=== PATIENT | male | born 1955 | race Caucasian/White ===

== ENCOUNTER 2020-01-07 06:39 | Day surgery (SDC) | payer OTHER ==
[2020-01-05 10:35] VITALS: BMI 29.0
[~2020-01-07 06:39] MED LIST: LACTATED RINGERS 1,000 ML IV SCH
[2020-01-07 07:12] VITALS: RESP 16; TEMP 97.6
[2020-01-07 07:25] LABS: Glucose,Whole Blood 191 mg/dL (75-99)
[2020-01-07] MEDS ORDERED: PROPOFOL 10 MG/ML 20 ML VIAL IV ONE (07:32)
--- NOTE | 2020-01-07 07:52 | P.PCN ---
Date of Procedure: 01/07/20 Procedure(s) Performed: BRIEF HISTORY: Patient is a 64-year-old pleasant male scheduled for an elective colonoscopy as a part of screening for colorectal neoplasia. PROCEDURE PERFORMED: Colonoscopy with biopsy. PREOPERATIVE DIAGNOSIS: Screening for colon cancer. IV sedation per Anesthesia. PROCEDURE: After informed consent was obtained, the patient, was brought into the endoscopy unit. IV sedation was administered by Anesthesia under continuous monitoring. Digital rectal examination was normal. Initially the Olympus CF-160 flexible video colonoscope was then inserted in the rectum, gradually advanced into the cecum without any difficulty. Careful examination was performed as the scope was gradually being withdrawn. Ileocecal valve and the appendiceal orifice were visualized and appeared normal. Prep was excellent. Mucosa of the cecum, ascending colon, transverse colon, descending colon, sigmoid colon, and rectum appeared normal. There was a 5 mm polyp noted in the mid rectum that was removed by cold biopsy. Retroflexion was performed in the rectum and no lesions were seen. The patient tolerated the procedure well. IMPRESSION: 5 mm mid rectal polyp status post removal by cold biopsy Rest of the colon appeared normal RECOMMENDATIONS: Findings of this examination were discussed with the patient as well as his family. He was advised to follow with the biopsy results. If the biopsy shows an adenoma he can have a repeat colonoscopy in 5 years.
[2020-01-07 08:11] VITALS: BP 120/76; PULSE 68
== END 2020-01-07 08:47 | disposition home or self-care (01) ==
LOC: ORWHC2ENDO 06:39
PROVIDERS: ATTEND Internal Medicine Gastroenterology
DX: Z12.11 Encounter for screening for malignant neoplasm of colon (principal); D12.8 Benign neoplasm of rectum; I10 Essential (primary) hypertension; E78.5 Hyperlipidemia, unspecified; E11.9 Type 2 diabetes mellitus without complications; G47.33 Obstructive sleep apnea (adult) (pediatric); Z79.84 Long term (current) use of oral hypoglycemic drugs; Z91.040 Latex allergy status; Z91.048 Other nonmedicinal substance allergy status; Z79.899 Other long term (current) drug therapy
CPT/HCPCS: 88305; 45380; J2704

== ENCOUNTER 2020-01-27 18:35 | Emergency (ER) | payer OTHER ==
[2020-01-27 18:52] VITALS: BP 131/80; PULSE 73; RESP 20; TEMP 98.9
[2020-01-27] MEDS ORDERED: KETOROLAC 15 MG/ML 1 ML VIAL IM STA (19:13)
--- NOTE | 2020-01-27 19:13 | ED ---
Lower Extremity Injury HPI - General Chief Complaint: Extremity Injury, Lower Stated Complaint: Right foot Pain Time Seen by Provider: 01/27/20 19:01 Source: patient, RN notes reviewed, old records reviewed Mode of arrival: ambulatory Limitations: no limitations - History of Present Illness Initial Comments: This is a 64-year-old male DF with history of the left left great toe pain. He states he has severe pain in his great toe concerned that he has diabetes and he could have an infection there. Otherwise no fevers no streaking up his foot. No other complaints MD Complaint: foot injury (no injury just pain and swelling) Injury: Foot: Left (great toe) Place: home Severity: moderate Severity scale (1-10): 6 Improves With: nothing Worsens With: weight bearing Associated Symptoms: swelling, able to partially bear weight - Related Data Home Medications Medication Instructions Recorded Confirmed Atorvastatin [Lipitor] 10 mg PO DAILY 01/05/20 01/05/20 Fenofibrate 160 mg PO DAILY 01/05/20 01/05/20 Metoprolol Succinate [Toprol XL] 100 mg PO DAILY 01/05/20 01/05/20 Multivitamin [Multivitamins Adult 1 each PO DAILY 01/05/20 01/05/20 Gummies] hydroCHLOROthiazide [Hydrodiuril] 12.5 mg PO DAILY 01/05/20 01/05/20 metFORMIN HCL [Glucophage] 500 mg PO BID 01/05/20 01/05/20 sitaGLIPtin [Januvia] 100 mg PO DAILY 01/05/20 01/05/20 Previous Rx's Medication Instructions Recorded Indomethacin [Indocin] 50 mg PO BID #30 capsule 01/27/20 Allergies Allergy/AdvReac Type Severity Reaction Status Date / Time adhesive tape Allergy blisters Verified 01/27/20 18:52 skin latex Allergy slisters Verified 01/27/20 18:52 skin Review of Systems ROS Statement: Those systems with pertinent positive or pertinent negative responses have been documented in the HPI. ROS Other: All systems not noted in ROS Statement are negative. Past Medical History Past Medical History: Diabetes Mellitus, Hyperlipidemia, Hypertension, Sleep Apnea/CPAP/BIPAP Additional Past Medical History / Comment(s): sleep apnea-improved with wt loss History of Any Multi-Drug Resistant Organisms: None Reported Additional Past Surgical History / Comment(s): colonoscopy Past Anesthesia/Blood Transfusion Reactions: No Reported Reaction Additional Past Anesthesia/Blood Transfusion Reaction / Comment(s): no hx general anesthesia or blood transfusion Past Psychological History: No Psychological Hx Reported Smoking Status: Never smoker Past Alcohol Use History: None Reported Past Drug Use History: None Reported - Past Family History Mother Family Medical History: No Reported History Father Family Medical History: Cancer General Exam - General Exam Comments Initial Comments: Left great toe gouty changes, joint tenderness and redness Limitations: no limitations General appearance: alert, in no apparent distress Head exam: Present: atraumatic, normocephalic, normal inspection Eye exam: Present: normal appearance, PERRL, EOMI. Absent: scleral icterus, conjunctival injection, periorbital swelling ENT exam: Present: normal exam, mucous membranes moist Neck exam: Present: normal inspection. Absent: tenderness, meningismus, lymphadenopathy Respiratory exam: Present: normal lung sounds bilaterally. Absent: respiratory distress, wheezes, rales, rhonchi, stridor Cardiovascular Exam: Present: regular rate, normal rhythm, normal heart sounds. Absent: systolic murmur, diastolic murmur, rubs, gallop, clicks GI/Abdominal exam: Present: soft, normal bowel sounds. Absent: distended, tenderness, guarding, rebound, rigid Extremities exam: Present: normal inspection, full ROM, normal capillary refill. Absent: tenderness, pedal edema, joint swelling, calf tenderness Back exam: Present: normal inspection Neurological exam: Present: alert, oriented X3, CN II-XII intact Psychiatric exam: Present: normal affect, normal mood Skin exam: Present: warm, dry, intact, normal color. Absent: rash Course Vital Signs 01/27/20 18:48 Temperature 98.9 F Pulse Rate 73 Respiratory 20 Rate Blood Pressure 131/80 O2 Sat by Pulse 96 Oximetry - Reevaluation(s) Reevaluation #1: Medical record is reviewed Patient symptoms improved feels well Patient informed of results, questions answered Patient feels good for discharge Medical Decision Making - Medical Decision Making 64 male informed of gouty tophus, patient treated appropriately for gouty tophus will be discharged home - Radiology Data Radiology results: report reviewed (X-ray foot negative for acute disease), image reviewed Disposition Clinical Impression: Gouty tophi of joint, Gouty arthritis of great toe Disposition: HOME SELF-CARE Condition: Good Instructions (If sedation given, give patient instructions): Gout (ED) Prescriptions: Indomethacin [Indocin] 50 mg PO BID #30 capsule Is patient prescribed a controlled substance at d/c from ED?: No Referrals: More Michaels MD [Primary Care Provider] - 1-2 days
--- NOTE | 2020-01-27 19:40 | XR ---
EXAMINATION TYPE: XR foot complete RT DATE OF EXAM: 01/27/2020 COMPARISON: NONE HISTORY: Pain TECHNIQUE: 3 views FINDINGS: There is an Achilles calcaneal spur. Metatarsals are intact. The toes appear intact. I see no fracture nor dislocation. IMPRESSION: No acute bony abnormality. Calcaneal spurring. No fracture.
== END 2020-01-27 20:11 | disposition home or self-care (01) ==
LOC: EC 18:35
DX: M1A.0721 Idiopathic chronic gout, left ankle and foot, with tophus (tophi) (principal); E11.9 Type 2 diabetes mellitus without complications; E78.5 Hyperlipidemia, unspecified; I10 Essential (primary) hypertension; G47.33 Obstructive sleep apnea (adult) (pediatric); Z79.84 Long term (current) use of oral hypoglycemic drugs; Z79.899 Other long term (current) drug therapy; Z99.89 Dependence on other enabling machines and devices; Z91.040 Latex allergy status; Z91.048 Other nonmedicinal substance allergy status
CPT/HCPCS: 73630; 96372; 99284; J1885

== ENCOUNTER → 2020-09-13 | Outpatient (CLI) | payer OTHER ==
--- NOTE | 2020-09-13 09:44 | XR ---
EXAMINATION TYPE: XR chest 2V DATE OF EXAM: 09/13/2020 COMPARISON: None HISTORY: 64-year-old male D75.1 Z71.3 E78.5 I10 TECHNIQUE: Frontal and lateral views FINDINGS: The cardiomediastinal silhouette, aorta, and pulmonary vasculature are within normal limits. There is some focal patchy medial right basilar opacity. Hazy density at the apex of the heart suggestive of epicardial fat pad. No definite consolidation or pleural effusion seen. IMPRESSION: Some focal patchy atelectasis versus early infiltrate at the medial right base. Correlate with patien t's symptoms.
== END | disposition home or self-care (01) ==
LOC: RADXRMAIN 08:56
PROVIDERS: ATTEND Internal Medicine Hematology & Oncology
DX: D75.1 Secondary polycythemia (principal)
CPT/HCPCS: 71046

== ENCOUNTER → 2020-10-05 | Outpatient (CLI) | payer OTHER ==
--- NOTE | 2020-10-05 12:28 | CT ---
EXAMINATION TYPE: CT chest w con DATE OF EXAM: 10/05/2020 COMPARISON: None HISTORY: lung infiltrate CT DLP: 691 mGycm, Automated exposure control for dose reduction was used. CONTRAST: Performed injected with 100 mL of Isovue 300. TECHNIQUE: Axial images were obtained at 5 mm thick sections. Reconstructed images are reviewed on [employer] computer in the coronal plane. FINDINGS: Portion of the thyroid visualized is normal. No suspicious lung nodules or focal infiltrates are present. No enlarged mediastinal or hilar adenopathy is evident. The ascending aorta diameter at the level o f the main pulmonary artery is 3.6 cm. The main pulmonary artery diameter at the bifurcation is 2.[address] sections are obtained through the upper abdomen. Abdomen is essentially unremarkable. IMPRESSIONS: 1. No acute pulmonary process.
== END | disposition home or self-care (01) ==
LOC: RADCTMAIN 09:14
PROVIDERS: ATTEND Internal Medicine Hematology & Oncology
DX: R91.8 Other nonspecific abnormal finding of lung field (principal)
CPT/HCPCS: 71260; Q9967

== ENCOUNTER → 2022-06-26 | Outpatient (CLI) | payer MEDICARE ==
--- NOTE | 2022-06-27 08:06 | XR ---
EXAMINATION TYPE: XR lumbosacral spine min 4V DATE OF EXAM: 06/26/2022 4:31 PM INDICATION: Patient age:Male; 66 years old; Reason for study: M25.552 M54.50; [facility]. COMPARISON: None TECHNIQUE: Frontal, lateral , bilateral oblique and coned in L5-S1 lateral views of the spine. FINDINGS: No evidence of any acute osseous pathology. No evidence of loss of vertebral body height i s seen. There is grade 1 anterolisthesis of L5 on S1. Alignment of the lumbar vertebral bodies. Mild scattered disc space narrowing. Multilevel marginal osteophyte formation throughout the visualized sp ine. There is facet joint arthropathy throughout the spine. Scattered at least mild neural foraminal stenosis most pronounced at L4-L5 and L5-S1. IMPRESSION: 1. No acute fracture. 2. Mild multilevel disc degeneration. 2. Grade 1 anterolisthesis of L5 on S1
--- NOTE | 2022-06-27 08:08 | XR ---
EXAMINATION TYPE: XR Hip Complete LT DATE OF EXAM: 06/26/2022 4:31 PM INDICATION: Patient age:Male; 66 years old; Reason for study: M25.552 M54.50; COMPARISON: None. TECHNIQUE: The left hip was examined in the frontal and lateral projections and a AP pelvis. FINDINGS: No evidence for acute process, joint dislocation or significant soft tissue swelling. Mild osteophyte formation of the superior acetabulum of the hip. IMPRESSION: 1. No evidence for acute process. 2. Mild hip osteoarthrosis.
== END | disposition home or self-care (01) ==
LOC: RADXRMAIN 16:11
PROVIDERS: ATTEND Nurse Practitioner Family
DX: M43.17 Spondylolisthesis, lumbosacral region (principal); M51.36 Other intervertebral disc degeneration, lumbar region; M16.12 Unilateral primary osteoarthritis, left hip
CPT/HCPCS: 72110; 73502

== ENCOUNTER 2023-01-08 18:31 | Emergency (ER) | payer MEDICARE ==
[2023-01-08 18:56] VITALS: TEMP 98.6
[2023-01-08] MEDS ORDERED: DIPH,PERTUS(ACELL)TETVAC-LF 0.5 ML VIAL IM ONE (21:32)
[2023-01-08] MEDS ORDERED: LIDOCAINE 1% INJ 10MG/ML (20 ML MDV) SQ ONE (21:32)
--- NOTE | 2023-01-08 21:43 | ED ---
Wound/Laceration HPI - General Chief Complaint: Wound/Laceration Stated Complaint: Lac on Stomach, sore joints Time Seen by Provider: 01/08/23 21:22 Source: patient Mode of arrival: ambulatory Limitations: no limitations - History of Present Illness Initial Comments: 67-year-old male presenting with chief complaint of laceration to the abdomen. Patient states that he was installing a window when a piece of glass shattered resulting in the 3 cm laceration to the abdomen. Bleeding is well controlled at time of presentation. He does not remember when his last tetanus shot was. No abdominal pain, nausea, vomiting, dizziness. - Related Data Home Medications Medication Instructions Recorded Confirmed Atorvastatin [Lipitor] 10 mg PO DAILY 01/05/20 01/05/20 Fenofibrate 160 mg PO DAILY 01/05/20 01/05/20 Metoprolol Succinate [Toprol XL] 100 mg PO DAILY 01/05/20 01/05/20 Multivitamin [Multivitamins Adult 1 each PO DAILY 01/05/20 01/05/20 Gummies] hydroCHLOROthiazide [Hydrodiuril] 12.5 mg PO DAILY 01/05/20 01/05/20 metFORMIN HCL [Glucophage] 500 mg PO BID 01/05/20 01/05/20 sitaGLIPtin [Januvia] 100 mg PO DAILY 01/05/20 01/05/20 Previous Rx's Medication Instructions Recorded Indomethacin [Indocin] 50 mg PO BID #30 capsule 01/27/20 Allergies Allergy/AdvReac Type Severity Reaction Status Date / Time adhesive tape Allergy blisters Verified 01/08/23 18:56 skin latex Allergy slisters Verified 01/08/23 18:56 skin Review of Systems ROS Statement: Those systems with pertinent positive or pertinent negative responses have been documented in the HPI. ROS Other: All systems not noted in ROS Statement are negative. Past Medical History Past Medical History: Diabetes Mellitus, Hyperlipidemia, Hypertension, Sleep Apnea/CPAP/BIPAP Additional Past Medical History / Comment(s): sleep apnea-improved with wt loss History of Any Multi-Drug Resistant Organisms: None Reported Additional Past Surgical History / Comment(s): colonoscopy Past Anesthesia/Blood Transfusion Reactions: No Reported Reaction Additional Past Anesthesia/Blood Transfusion Reaction / Comment(s): no hx general anesthesia or blood transfusion Past Psychological History: No Psychological Hx Reported Smoking Status: Never smoker Past Alcohol Use History: None Reported Past Drug Use History: None Reported - Past Family History Mother Family Medical History: No Reported History Father Family Medical History: Cancer General Exam Limitations: no limitations General appearance: alert, in no apparent distress Head exam: Present: atraumatic, normocephalic, normal inspection Eye exam: Present: normal appearance, EOMI Neck exam: Present: normal inspection, full ROM Respiratory exam: Absent: respiratory distress Neurological exam: Present: alert, oriented X3, CN II-XII intact Psychiatric exam: Present: normal affect, normal mood Expanded Type of lesion: Present: laceration (4cm, abdomen) Course Vital Signs 01/08/23 18:53 Temperature 98.6 F Pulse Rate 98 Respiratory 18 Rate Blood Pressure 120/85 O2 Sat by Pulse 96 Oximetry Procedures - Laceration Laceration #1 Consent Obtained: verbal consent Indication: laceration Site: abdomen Size (cm): 4 Description: linear Depth: simple, single layer Anesthetic Used: lidocaine 1%, without epi Anesthesia Technique: local infiltration Pre-repair: wound explored, irrigated extensively Type of Sutures: nylon Size of Sutures: 3-0 Number of Sutures: 4 Technique: simple, interrupted Patient Tolerated Procedure: well Medical Decision Making - Medical Decision Making Was pt. sent in by a medical professional or institution (, PA, [employer], urgent care, hospital, or senior care...) When possible be specific @ -No Did you speak to anyone other than the patient for history (EMS, parent, family, police, friend...)? What history was obtained from this source @ -No Did you review nursing and triage notes (agree or disagree)? Why? @ -I reviewed and agree with nursing and triage notes Were old charts reviewed (outside hosp., previous admission, EMS record, old EKG, old radiological studies, urgent care reports/EKG's, senior care records)? Report findings @ -No old charts were reviewed Differential Diagnosis (chest pain, altered mental status, abdominal pain women, abdominal pain men, vaginal bleeding, weakness, fever, dyspnea, syncope, h eadache, dizziness, GI bleed, back pain, seizure, CVA, palpatations, mental health, musculoskeletal)? @ -not applicable EKG interpreted by me (3pts min.). @ -As above X-rays interpreted by me (1pt min.). @ -None done CT interpreted by me (1pt min.). @ -None done U/S interpreted by me (1pt. min.). @ -None done What testing was considered but not performed or refused? (CT, X-rays, U/S, labs)? Why? @ -None What meds were considered but not given or refused? Why? @ -None Did you discuss the management of the patient with other professionals (professionals i.e. Dr., PA, [employer], lab, RT, psych nurse, social services assistant, dance coach, teacher, loan review officer, clinical case manager)? Give summary @ -No Was smoking cessation discussed for >3mins.? @ -No Was critical care preformed (if so, how long)? @ -No Were there social determinants of health that impacted care today? How? (Homelessness, low income, unemployed, alcoholism, drug addiction, transportation, low edu. Level, literacy, decrease access to med. care, senior living, rehab)? @ -No Was there de-escalation of care discussed even if they declined (Discuss DNR or withdrawal of care, Hospice)? DNR status @ -No What co-morbidities impacted this encounter? (DM, HTN, Smoking, COPD, CAD, Cancer, CVA, ARF, Chemo, Hep., AIDS, mental health diagnosis, sleep apnea, morbid obesity)? @ -None Was patient admitted / discharged? Hospital course, mention meds given and route, prescriptions, significant lab abnormalities, going to OR and other pertinent info. @ -67-year-old male presenting with chief complaint of laceration to the abdomen. He was installing a window today when glass broke resulting in a 4 cm laceration to the abdomen. Bleeding is well controlled at time of presentation. He has no additional abdominal pain. Does not remember when his last tetanus was, tetanus updated today. Wound is irrigated and repaired. He is educated on wound care and signs of infection. Follow-up with PCP. Report back to ER with any new or worsening symptoms. Discussed return parameters and answered all questions. Patient conveyed verbal understanding and agreed to the plan. I discussed this case in detail with my attending Dr. Ibarra Undiagnosed new problem with uncertain prognosis? @ -No Drug Therapy requiring intensive monitoring for toxicity (Heparin, Nitro, Insulin, Cardizem)? @ -No Were any procedures done? @ -Laceration repair Diagnosis/symptom? @ -Laceration Acute, or Chronic, or Acute on Chronic? @ -Acute Uncomplicated (without systemic symptoms) or Complicated (systemic symptoms)? @ -Uncomplicated Side effects of treatment? @ -No Exacerbation, Progression, or Severe Exacerbation? @ -No Poses a threat to life or bodily function? How? (Chest pain, USA, MA, pneumonia, PE, COPD, DKA, ARF, appy, cholecystitis, CVA, Diverticulitis, Homicidal, Suicidal, threat to staff... and all critical care pts) @ -No Disposition Clinical Impression: Laceration Disposition: HOME SELF-CARE Condition: Good Instructions (If sedation given, give patient instructions): Care For Your Stitches (ED), Laceration (ED) Additional Instructions: Follow-up with PCP. Report back to ER with any new for her symptoms or s ymptoms. Sutures may be removed in 10-14 days. He may wash gently with soap and water. Do not fully submerge the wound, such as swimming or baths. Monitor for signs infection, including but not limited to redness, swelling, warmth, tenderness, discharge. Is patient prescribed a controlled substance at d/c from ED?: No Referrals: More Michaels MD [Primary Care Provider] - 1-2 days Time of Disposition: 22:49
[2023-01-08] MEDS ORDERED: BACITRACIN OINT 1 EACH PACKET TOPICAL ONE (22:47)
[2023-01-08 23:17] VITALS: BP 120/77; PULSE 83; RESP 16
== END 2023-01-08 23:17 | disposition home or self-care (01) ==
LOC: EC 18:31
DX: S36.33XA Laceration of stomach, initial encounter (principal); E11.9 Type 2 diabetes mellitus without complications; E78.5 Hyperlipidemia, unspecified; I10 Essential (primary) hypertension; Z88.8 Allergy status to other drugs, medicaments and biological substances; Z91.040 Latex allergy status; Z79.84 Long term (current) use of oral hypoglycemic drugs; Z79.899 Other long term (current) drug therapy; Z23 Encounter for immunization; W25.XXXA Contact with sharp glass, initial encounter
CPT/HCPCS: 90715; 99282; 90471; 12002; J2001

== ENCOUNTER 2023-07-20 10:20 | Day surgery (SDC) | payer MEDICARE ==
[2023-07-17 13:14] VITALS: BMI 29.8
--- NOTE | 2023-07-20 08:31 | P.GSHP ---
History of Present Illness H&P Date: 07/20/23 Chief Complaint: Neck mass 67-year-old male here today for excision of posterior neck mass and recurrent lipoma left mid back. Both areas increasing in size gradually. Mild soreness particularly in the neck region. History of prior lipomas. Past Medical History Past Medical History: Diabetes Mellitus, Hyperlipidemia, Hypertension, Sleep Apnea/CPAP/BIPAP Additional Past Medical History / Comment(s): sleep apnea-resolved with wt loss, hx gout, chronic rashes on ears & scalp., hx lipomas., current lipoma on his back and posterior neck mass., states elevated RBC's (DR Murrell) History of Any Multi-Drug Resistant Organisms: None Reported Additional Past Surgical History / Comment(s): colonoscopy, 2 Lipoma's removed Past Anesthesia/Blood Transfusion Reactions: No Reported Reaction Additional Past Anesthesia/Blood Transfusion Reaction / Comment(s): . Past Psychological History: No Psychological Hx Reported Smoking Status: Never smoker Past Alcohol Use History: None Reported Past Drug Use History: None Reported - Past Family History Mother Family Medical History: No Reported History Father Family Medical History: Cancer Medications and Allergies Home Medications Medication Instructions Recorded Confirmed Type Atorvastatin [Lipitor] 10 mg PO PC-LUNCH 01/05/20 07/17/23 History Fenofibrate 160 mg PO PC-LUNCH 01/05/20 07/17/23 History Metoprolol Succinate [Toprol XL] 100 mg PO PC-LUNCH 01/05/20 07/17/23 History hydroCHLOROthiazide [Hydrodiuril] 12.5 mg PO PC-LUNCH 01/05/20 07/17/23 History Mounjaro (Unknown Dose) 1 dose SQ FRIAS 07/17/23 History Naproxen Sodium (Unknown Dose) 2 tab PO BID PRN 07/17/23 History metFORMIN HCL ER [Glucophage XR] 1,000 mg PO PC-LUNCH 07/17/23 07/17/23 History sitaGLIPtin PHOS/metFORMIN HCL 1 tab PO PC-LUNCH 07/17/23 07/17/23 History [Janumet Xr 100-1,000 mg Tablet] Allergies Allergy/AdvReac Type Severity Reaction Status Date / Time adhesive tape Allergy blisters Verified 07/17/23 12:49 skin latex Allergy Blisters Verified 07/17/23 12:49 skin Surgical - Exam Physical exam: General: Well-developed, well-nourished HEENT: Normocephalic, sclerae nonicteric, posterior neck with 2.5 cm mass adherent to dermis Abdomen: Nontender, nondistended Extremities: No edema, left mid back with recurrent lipomatous mass 3 cm Neuro: Alert and oriented Assessment and Plan (1) Neck mass Narrative/Plan: 67-year-old male with posterior neck mass and recurrent lipoma left back. Will proceed with surgical excision of both lesions. Risks of bleeding, infection, scarring, recurrence discussed. He understands and wishes to proceed. Status: Acute Code(s): R22.1 - LOCALIZED SWELLING, MASS AND LUMP, NECK SNOMED Code(s): 006859163
[~2023-07-20 10:20] MED LIST changes: +ACETAMINOPHEN TAB 500 MG TAB PO PRN; +HYDROmorphone 0.5 MG/0.5 ML SYRINGE IVP PRN; -LACTATED RINGERS 1,000 ML IV SCH; +MIDAZOLAM 2 MG/2 ML VIAL IV PRN; +Pre Op ABX Message 1 EACH MISC MISCELLANE ONE
[2023-07-20] MEDS: LACTATED RINGERS 1,000 ML IV SCH (10:42)
[2023-07-20 11:00] LABS: Glucose,Whole Blood 241 mg/dL (70-110)
[2023-07-20] MEDS: ONDANSETRON 4 MG/2 ML VIAL IVP ONE (11:16)
[2023-07-20] MEDS: DEXAMETHASONE SOD PHOSPHATE 4 MG/ML 1 ML VIAL IV ONE (11:16)
[2023-07-20] MEDS: HEPARIN SODIUM,PORCINE 5,000 UNIT/ML 1 ML VIAL SQ PRN (11:16)
[2023-07-20] MEDS: INSULIN ASPART (NovoLOG) 100 UNIT/ML VIAL SQ ONE (11:16)
[2023-07-20] MEDS: ACETAMINOPHEN IV (For NPO) 1,000 MG/100 ML VIAL IVPB ONE (11:17)
[2023-07-20] MEDS ORDERED: INSULIN ASPART (NovoLOG) 100 UNIT/ML VIAL SQ PRN (11:20)
[2023-07-20] MEDS ORDERED: fentaNYL (PF) 50 MCG/ML 2 ML AMP ONE (11:41)
[2023-07-20] MEDS ORDERED: PHENYLEPHRINE-0.9% NACL SYG 1,000 MCG/10 ML SYRINGE ONE (11:41)
[2023-07-20] MEDS ORDERED: PROPOFOL 10 MG/ML 20 ML VIAL IV ONE (11:41)
[2023-07-20] MEDS ORDERED: LIDOCAINE 1% INJ 10MG/ML (20 ML MDV) ONE (11:41)
[2023-07-20] MEDS ORDERED: KETOROLAC 15 MG/ML 1 ML VIAL ONE (11:41)
[2023-07-20] MEDS ORDERED: SUCCINYLCHOLINE CHLORIDE 200 MG/10 ML VIAL IV ONE (11:41)
[2023-07-20] MEDS ORDERED: ceFAZolin 1 GM/50 ML BAG (PMX) ONE (11:41)
[2023-07-20] MEDS ORDERED: MIDAZOLAM 2 MG/2 ML VIAL ONE (11:41)
[2023-07-20] MEDS: SODIUM CHLORIDE 0.9% 50 ML with ceFAZolin 2,000 MG IV ONE (11:47)
[2023-07-20] MEDS: BUPIVACAINE (PF) 0.25% 30 ML VIAL SQ ONE ×2 (12:17)
[2023-07-20] MEDS ORDERED: INSULIN ASPART (NovoLOG) 100 UNIT/ML VIAL SQ SCH (12:30)
[2023-07-20] MEDS ORDERED: NALOXONE 0.4 MG/ML 1 ML VIAL IV PRN (12:53)
[2023-07-20] MEDS ORDERED: HYDROmorphone 1 MG/ML 1 ML SYRINGE IVP PRN (12:53)
[2023-07-20] MEDS ORDERED: HYDROcodone/APAP 5-325MG 1 EACH TAB PO PRN (12:53)
--- NOTE | 2023-07-20 12:57 | P.OP ---
Date of Procedure: 07/20/23 Procedure(s) Performed: PREOPERATIVE DIAGNOSIS: Left posterior neck mass, left lower back lipoma POSTOPERATIVE DIAGNOSIS: Same PROCEDURE: Excision left posterior neck lipoma, excision recurrent left lower back lipoma, intermediate closure SURGEON: Amanda EBL: 10 cc ANESTHESIA: General COMPLICATIONS: None OPERATIVE PROCEDURE: Patient placed on the operating table in the right decubitus position. Posterior neck and left lower back prepped and draped sterilely. Lower back site first addressed. Previous scar reincised. Subcutaneous dissection took place with cautery. Lipomatous mass fully excised using electrocautery. This measured 4 x 3 cm. This was sent to pathology. Subcutaneous tissues closed using interrupted 3-0 Vicryl sutures and skin closed using running 4-0 Monocryl stitch. Length of intermediate closure 4 cm. Next the posterior neck lesion was addressed. A horizontal incision was made overlying the palpable mass. Dissection through the superficial tissues took place using electrocautery. This was again noted to be a lipoma. This was very firm and indurated. It was somewhat difficult to visualize the plane between the lipoma and the surrounding fat. This was excised primarily with electrocautery. This measured 3 x 2 cm in size. Subcutaneous tissue was again closed using 3-0 Vicryl sutures. Skin again closed using running 4-0 Monocryl stitch. Skin glue and sterile dressings. Length of intermediate closure at neck site 3.5 cm. Sterile dressings applied. DISPOSITION: Stable to recovery room
[2023-07-20 13:09] VITALS: TEMP 98.2
[2023-07-20] MEDS: LACTATED RINGERS 1,000 ML IV ONE (13:10)
[2023-07-20 13:40] VITALS: RESP 16
[2023-07-20 13:42] LABS: Glucose,Whole Blood 226 mg/dL (70-110)
[2023-07-20 14:11] VITALS: BP 113/71; PULSE 83
== END 2023-07-20 14:31 | disposition home or self-care (01) ==
LOC: OR 10:20
PROVIDERS: ATTEND Surgery
DX: D17.1 Benign lipomatous neoplasm of skin and subcutaneous tissue of trunk (principal); L72.3 Sebaceous cyst; E11.9 Type 2 diabetes mellitus without complications; E78.5 Hyperlipidemia, unspecified; G47.30 Sleep apnea, unspecified; I10 Essential (primary) hypertension; Z91.040 Latex allergy status; Z79.84 Long term (current) use of oral hypoglycemic drugs; Z79.899 Other long term (current) drug therapy
CPT/HCPCS: 88304; 88305; 21931; J2250; J0330; J1644; J1100; J2405; J0690 ×2; J2001; J3010; J0131; J1885; J2704; J2371; J0665